=== PATIENT | female | born 1995 | race Two or more races ===

== ENCOUNTER 2019-10-06 05:55 | Inpatient (IN) ==
[2019-10-06] MEDS ORDERED: DINOPROSTONE VAG GEL 10 MG SYRINGE VAG ONE ×2 (07:13→13:24)
[2019-10-06] MEDS ORDERED: ONDANSETRON 4 MG/2 ML VIAL IV PRN (07:14)
[2019-10-06 07:37] LABS: Basophils % 0.3 % (0.0-0.8); Eosinophils % 0.4 % (0.00-10.9); Hematocrit 29.5 VOL% (35.7-47.0); Hemoglobin 9.2 GM/DL (12.0-16.0); Immature Granulocytes % 0.6 %; Immature Granulocytes Absolute 0.04 #; Lymphocytes # 1.9 10*3/uL (1.4-4.0); Lymphocytes % 26.3 % (21.3-54.2); Mean Corpuscular HGB Conc 31.2 GM/DL (32-36); Mean Corpuscular Volume 75.1 FL (87-102); Monocytes % 6.1 % (1.7-12.7); Neutrophils % 66.3 % (38.7-73.9); Platelet Count 146 T/CUMM (130-400); Red Blood Count 3.93 MC/CUMM (3.8-5.5); Red Cell Distribution Width 17.1 % (9.3-17.3); White Blood Count 7.2 T/CUMM (4-12)
[2019-10-06 07:54] LABS: Anisocytosis 1+; Hypochromasia 1+; Microcytosis 1+; Ovalocytes Slight; Polychromasia Slight
[2019-10-06 07:55] LABS: Platelet Estimate Adequate
[2019-10-06] MEDS ORDERED: MEPERIDINE 50 MG/1 ML VIAL IV PRN (12:07)
[2019-10-06] MEDS: LACTATED RINGERS 1,000 ML IV SCH (14:09)
[2019-10-07] MEDS ORDERED: AMPICILLIN INJ 2,000 MG in SODIUM CHLORIDE 0.9% 100 ML IV ONE (02:00)
[2019-10-07] MEDS ORDERED: OXYTOCIN/LR 20 UNIT/1,000 ML BAG IV SCH (02:00)
[2019-10-07] MEDS: AMPICILLIN INJ 1,000 MG in SODIUM CHLORIDE 0.9% 100 ML IV SCH ×2 (06:05→10:53)
[2019-10-07] MEDS ORDERED: CITRIC ACID/SODIUM CITRATE 30 ML UDCUP PO ONE (08:38)
[2019-10-07] MEDS ORDERED: FAMOTIDINE 20 MG/2 ML VIAL IV ONE (08:38)
[2019-10-07] MEDS ORDERED: ceFAZolin 2,000 MG in PREMIX 1 EACH IV ONE (08:38)
[2019-10-07] MEDS ORDERED: OXYTOCIN/LR 30 UNIT/1,000 ML BAG IV ONE (08:54)
[2019-10-07] MEDS ORDERED: OXYTOCIN 10 UNIT/ML VIAL IM ONE (08:54)
[2019-10-07] MEDS: LACTATED RINGERS 1,000 ML IV SCH ×2 (09:38→17:09)
[2019-10-07] MEDS ORDERED: fentaNYL 100 MCG/2 ML VIAL ONE (10:17)
[2019-10-07] MEDS ORDERED: BUPIVACAINE SPINAL 0.75% 2 ML AMP SPINAL ONE (10:17)
[2019-10-07] MEDS ORDERED: MORPHINE 10 MG/10 ML VIAL ONE (10:17)
[2019-10-07] MEDS ORDERED: KETOROLAC 60 MG/2 ML VIAL IM ONE (10:18)
[2019-10-07 11:38] LABS: Cord Arterial Blood HCO3 21.2 MMOL/L; Cord Venous Blood HCO3 22.9 MMOL/L; Cord Venous Blood PCO2 47.2 MMHG; Cord Venous Blood PO2 20.2 MMHG
[2019-10-07 11:57] LABS: Apearance,Urine CLEAR (Clear); Bacteria,Urine Occasional /HPF (Few); Bilirubin,Urine Negative (Negative); Blood, Urine Negative (Negative); Glucose,Urine (UA) Negative (Negative); Ketones,Urine Negative (Negative); Mucus,Urine Occasional /LPF (Occasional); Nitrite,Urine Negative (Negative); Protein,Urine Negative; Squamous Epithelial Cell,Urine Occasional /HPF (0-10); Urine Color Colorless (Yellow); Urine Specific Gravity 1.004 (1.001-1.035); Urine Urobilinogen < 2.0 EU/DL (0.2-1.0); WBC,Urine <1 /HPF (0-6)
[2019-10-07] MEDS ORDERED: hydrOXYzine HCL 25 MG/1 ML VIAL IM PRN (12:02)
[2019-10-07] MEDS ORDERED: diphenhydrAMINE 50 MG/1 ML VIAL IV PRN (12:02)
[2019-10-07] MEDS ORDERED: HYDROmorphone 2 MG/1 ML VIAL IV PRN (12:02)
[2019-10-07] MEDS ORDERED: PHENYLEPHRINE 1 MG/10 ML SYRINGE IV ONE (12:04)
[2019-10-07] MEDS ORDERED: EPINEPHrine 1 MG/ML VIAL ONE (12:05)
[2019-10-07] MEDS ORDERED: BUPIVACAINE 0.5% 50 ML VIAL ONE (12:05)
[2019-10-07] MEDS ORDERED: DEXAMETHASONE 4 MG/1 ML VIAL ONE (12:05)
[2019-10-07] MEDS ORDERED: METHYLERGONOVINE 0.2 MG/1 ML AMP IM ONE (14:34)
[2019-10-07] MEDS ORDERED: OXYTOCIN/LR 20 UNIT/1,000 ML BAG IV ONE (15:00)
[2019-10-07] MEDS ORDERED: HYDROCORTISONE 2.5% RECTAL CREAM 30 GM TUBE TOP PRN (16:54)
[2019-10-07] MEDS ORDERED: IBUPROFEN 800 MG TABLET PO PRN (16:54)
[2019-10-07] MEDS ORDERED: DIPH/TET/ACEL PERT BOOSTER VACCINE 0.5 ML VIAL IM ONE (16:54)
[2019-10-07] MEDS ORDERED: MEASLES/MUMPS/RUBELLA VACCINE 0.5 ML VIAL SUBCUT ONE (16:54)
[2019-10-07] MEDS ORDERED: oxyCODONE/ACETAMINOPHEN 5-325 MG TABLET PO PRN (16:54)
[2019-10-07] MEDS ORDERED: WITCH HAZEL PADS 100/JAR TOP PRN (16:54)
[2019-10-07] MEDS ORDERED: ACETAMINOPHEN 325 MG TABLET PO PRN (16:54)
[2019-10-07] MEDS ORDERED: BISACODYL 10 MG SUPP RECTAL PRN (16:54)
[2019-10-07] MEDS ORDERED: LANOLIN 50% CREAM 0.3 OZ TUBE TOP PRN (16:54)
[2019-10-07] MEDS ORDERED: RHO(D) IMMUNE GLOBULIN 300 MCG SYRINGE IM ONE (16:54)
[2019-10-07] MEDS ORDERED: BENZOCAINE 20%/MENTHOL 0.5% SPRAY 56 GM CAN TOP PRN (16:54)
[2019-10-07] MEDS: KETOROLAC 30 MG/1 ML VIAL IV SCH (18:08)
[2019-10-07] MEDS ORDERED: SODIUM CHLORIDE 0.9% 50 ML IV ONE (18:18)
[2019-10-07] MEDS: ceFAZolin 1,000 MG in SYRINGE 1 EACH IV SCH (18:26)
[2019-10-07 19:14] LABS: Basophils % 0.1 % (0.0-0.8); Hemoglobin 8.7 GM/DL (12.0-16.0); Immature Granulocytes % 0.7 %; Immature Granulocytes Absolute 0.09 #; Lymphocytes # 1.1 10*3/uL (1.4-4.0); Lymphocytes % 8.3 % (21.3-54.2); Mean Corpuscular HGB Conc 31.1 GM/DL (32-36); Mean Corpuscular Volume 76.5 FL (87-102); Monocytes % 4.5 % (1.7-12.7); Neutrophils % 86.4 % (38.7-73.9); Platelet Count 166 T/CUMM (130-400); Red Blood Count 3.66 MC/CUMM (3.8-5.5); Red Cell Distribution Width 17.3 % (9.3-17.3); White Blood Count 13.2 T/CUMM (4-12)
[2019-10-07 21:18] LABS: Platelet Estimate Adequate
[2019-10-08] MEDS: FERROUS SULFATE 325 MG TABLET PO SCH ×3 (00:36→21:59)
[2019-10-08] MEDS: KETOROLAC 30 MG/1 ML VIAL IV SCH ×2 (00:37→06:36)
[2019-10-08] MEDS: ceFAZolin 1,000 MG in SYRINGE 1 EACH IV SCH (02:23)
[2019-10-08 05:59] LABS: Basophils % 0.2 % (0.0-0.8); Eosinophils % 0.1 % (0.00-10.9); Hematocrit 24.7 VOL% (35.7-47.0); Hemoglobin 7.7 GM/DL (12.0-16.0); Immature Granulocytes % 0.6 %; Immature Granulocytes Absolute 0.07 #; Lymphocytes # 2.4 10*3/uL (1.4-4.0); Lymphocytes % 19.7 % (21.3-54.2); Mean Corpuscular HGB Conc 31.2 GM/DL (32-36); Mean Corpuscular Volume 74.8 FL (87-102); Monocytes % 7.1 % (1.7-12.7); Neutrophils % 72.3 % (38.7-73.9); Platelet Count 147 T/CUMM (130-400); Red Cell Distribution Width 17.2 % (9.3-17.3); White Blood Count 12.1 T/CUMM (4-12)
[2019-10-08 06:25] LABS: Hypochromasia 1+
[2019-10-08 06:26] LABS: Anisocytosis 1+; Microcytosis 1+; Ovalocytes Few; Platelet Estimate Adequate; Target Cells Slight
[2019-10-08] MEDS ORDERED: HydrOXYzine PAMOATE 25 MG CAPSULE PO PRN (06:40)
[2019-10-08] MEDS: DOCUSATE SODIUM 100 MG CAPSULE PO SCH ×2 (10:26→21:59)
[2019-10-08] MEDS: MAGNESIUM HYDROXIDE SUSP 30 ML UDCUP PO PRN (16:46)
[2019-10-08] MEDS: METOCLOPRAMIDE 10 MG TABLET PO SCH (16:46)
[2019-10-08] MEDS: oxyCODONE/ACETAMINOPHEN 5-325 MG TABLET PO PRN (18:28)
[2019-10-09] MEDS: METOCLOPRAMIDE 10 MG TABLET PO SCH ×3 (00:38→16:38)
[2019-10-09 07:16] VITALS: BP 109/69
[2019-10-09] MEDS: DOCUSATE SODIUM 100 MG CAPSULE PO SCH ×2 (07:52→14:16)
[2019-10-09] MEDS: FERROUS SULFATE 325 MG TABLET PO SCH ×2 (07:52→14:16)
[2019-10-09] MEDS: MAGNESIUM HYDROXIDE SUSP 30 ML UDCUP PO PRN (07:52)
[2019-10-09] MEDS ORDERED: MAGNESIUM CITRATE 300 ML BOTTLE PO ONE (10:26)
[2019-10-09] MEDS: oxyCODONE/ACETAMINOPHEN 5-325 MG TABLET PO PRN (14:36)
== END 2019-10-09 16:30 | disposition home or self-care (01) | DRG 540 ==
LOC: N.LDOUT 05:55 → N.LD 06:14 → N.OB 10-07 16:40
PROVIDERS: ADMIT Obstetrics & Gynecology; ATTEND Obstetrics & Gynecology
PROC: LDCSECT (ICD-10-PCS; 2019-10-07 10:30)

== ENCOUNTER 2022-05-05 06:27 | Inpatient (IN) ==
[2022-05-05] MEDS ORDERED: ONDANSETRON 4 MG/2 ML VIAL IV PRN (06:38)
[2022-05-05] MEDS ORDERED: CITRIC ACID/SODIUM CITRATE 30 ML UDCUP PO ONE ×2 (06:38→06:46)
[2022-05-05] MEDS ORDERED: LACTATED RINGERS 250 ML IV ONE (06:38)
[2022-05-05] MEDS ORDERED: LACTATED RINGERS 500 ML IV PRN (06:38)
[2022-05-05] MEDS ORDERED: OXYTOCIN/LR 20 UNIT/1,000 ML BAG IV ONE ×3 (06:38→11:26)
[2022-05-05] MEDS ORDERED: miSOPROStoL 200 MCG TABLET RECTAL PRN ×2 (06:38→06:46)
[2022-05-05] MEDS ORDERED: diphenhydrAMINE 50 MG/1 ML VIAL IV PRN ×2 (06:38)
[2022-05-05] MEDS ORDERED: FAMOTIDINE 20 MG/2 ML VIAL IV ONE (06:38)
[2022-05-05] MEDS ORDERED: METHYLERGONOVINE 0.2 MG/1 ML AMP IM PRN ×2 (06:38→06:46)
[2022-05-05] MEDS ORDERED: ePHEDrine 50 MG/ML VIAL IV PRN (06:38)
[2022-05-05] MEDS ORDERED: ONDANSETRON 4 MG/2 ML VIAL IV ONE (06:38)
[2022-05-05] MEDS ORDERED: hydrOXYzine HCL 25 MG/1 ML VIAL IM PRN (06:38)
[2022-05-05] MEDS ORDERED: LACTATED RINGERS 1,000 ML IV ONE ×2 (06:38→09:42)
[2022-05-05] MEDS ORDERED: CARBOPROST TROMETHAMINE 250 MCG/ML AMP IM PRN ×2 (06:38→06:46)
[2022-05-05] MEDS ORDERED: TRANEXAMIC ACID 1,000 MG in SODIUM CHLORIDE 0.9% 100 ML IV PRN ×2 (06:38→06:46)
[2022-05-05] MEDS ORDERED: PROMETHAZINE 25 MG/1 ML VIAL IM ONE (06:38)
[2022-05-05] MEDS ORDERED: LACTATED RINGERS 500 ML IV ONE (06:38)
[2022-05-05] MEDS ORDERED: LACTATED RINGERS 250 ML IV PRN (06:38)
[2022-05-05] MEDS ORDERED: OXYTOCIN/LR 30 UNIT/1,000 ML BAG IV ONE (06:45)
[2022-05-05] MEDS ORDERED: LACTATED RINGERS 1,000 ML IV SCH ×5 (07:00→11:30)
[2022-05-05 07:25] LABS: Basophils % 0.1 % (0.0-0.8); Eosinophils % 0.4 % (0.00-10.9); Hematocrit 28.7 VOL% (35.7-47.0); Hemoglobin 9.2 GM/DL (12.0-16.0); Immature Granulocytes % 0.4 %; Immature Granulocytes Absolute 0.03 #; Lymphocytes # 1.9 10*3/uL (1.4-4.0); Lymphocytes % 28.5 % (21.3-54.2); Mean Corpuscular HGB Conc 32.1 GM/DL (32-36); Mean Corpuscular Volume 75.5 FL (87-102); Monocytes # 0.5 10*3/uL (0.11-0.8); Neutrophils % 62.6 % (38.7-73.9); Red Cell Distribution Width 16.8 % (9.3-17.3); White Blood Count 6.8 T/CUMM (4-12)
[2022-05-05 07:29] LABS: Platelet Count 120 T/CUMM (130-400)
[2022-05-05] MEDS ORDERED: OXYTOCIN 10 UNIT/ML VIAL IM ONE (07:33)
[2022-05-05 07:54] LABS: Hypochromia Slight; Microcytosis Slight
[2022-05-05] MEDS ORDERED: TRANEXAMIC ACID 1,000 MG/10 ML VIAL ONE (08:16)
[2022-05-05] MEDS ORDERED: CARBOPROST TROMETHAMINE 250 MCG/ML AMP IM ONE (08:16)
[2022-05-05] MEDS ORDERED: miSOPROStoL 200 MCG TABLET ONE (08:16)
[2022-05-05] MEDS ORDERED: METHYLERGONOVINE 0.2 MG/1 ML AMP ONE (08:16)
[2022-05-05] MEDS ORDERED: SODIUM CHLORIDE 0.9% 0 ML IV ONE (08:16)
[2022-05-05] MEDS ORDERED: ceFAZolin 3,000 MG in SYRINGE 1 EACH IV ONE (08:30)
[2022-05-05] MEDS ORDERED: SODIUM CHLORIDE 0.9% 1,000 ML IV PRN (08:49)
[2022-05-05] MEDS ORDERED: ONDANSETRON 4 MG/2 ML VIAL ONE (09:05)
[2022-05-05] MEDS ORDERED: BUPIVACAINE SPINAL 0.75% 2 ML AMP SPINAL ONE (09:05)
[2022-05-05] MEDS ORDERED: buprenorphine HCL 0.3 MG/ML VIAL ONE (09:05)
[2022-05-05] MEDS ORDERED: PHENYLEPHRINE 1 MG/10 ML SYRINGE IV ONE (09:35)
[2022-05-05] MEDS ORDERED: KETOROLAC 30 MG/1 ML VIAL ONE (09:35)
[2022-05-05] MEDS ORDERED: ACETAMINOPHEN INJ 1,000 MG/100 ML VIAL IV ONE (09:35)
[2022-05-05] MEDS ORDERED: ePHEDrine 50 MG/ML VIAL ONE (09:40)
[2022-05-05] MEDS ORDERED: DEXAMETHASONE 4 MG/1 ML VIAL ONE (09:42)
[2022-05-05 10:05] LABS: Cord Venous Blood HCO3 20.6 MMOL/L; Cord Venous Blood PCO2 41.2 MMHG; Cord Venous Blood PO2 36.1
[2022-05-05 10:06] LABS: Bacteria,Urine Occasional /HPF (Few); RBC,Urine 1 /HPF (0-4)
[2022-05-05 10:07] LABS: Bilirubin,Urine Negative (Negative); Blood, Urine Negative (Negative); Glucose,Urine (UA) Negative (Negative); Ketones,Urine Negative (Negative); Nitrite,Urine Negative (Negative); Protein,Urine Negative (Negative); Urine Appearance Clear (Clear); Urine Color Yellow (Yellow); Urine Urobilinogen 0.2 eU/dL (<2.0)
[2022-05-05] MEDS ORDERED: ACETAMINOPHEN 325 MG TABLET PO PRN (11:26)
[2022-05-05] MEDS ORDERED: RHO(D) IMMUNE GLOBULIN 300 MCG SYRINGE IM ONE (11:26)
[2022-05-05] MEDS ORDERED: MAGNESIUM HYDROXIDE SUSP 30 ML UDCUP PO PRN (11:26)
[2022-05-05] MEDS ORDERED: KETOROLAC 30 MG/1 ML VIAL IV SCH (16:00)
[2022-05-05] MEDS ORDERED: ACETAMINOPHEN 500 MG TABLET PO SCH (16:00)
[2022-05-05 16:46] LABS: Basophils % 0.2 % (0.0-0.8); Eosinophils % 0.3 % (0.00-10.9); Hematocrit 25.9 VOL% (35.7-47.0); Hemoglobin 8.2 GM/DL (12.0-16.0); Immature Granulocytes % 0.4 %; Immature Granulocytes Absolute 0.04 #; Lymphocytes # 2.3 10*3/uL (1.4-4.0); Lymphocytes % 22.2 % (21.3-54.2); Mean Corpuscular HGB Conc 31.7 GM/DL (32-36); Mean Corpuscular Volume 75.7 FL (87-102); Monocytes # 0.7 10*3/uL (0.11-0.8); Monocytes % 7.2 % (1.7-12.7); Neutrophils % 69.7 % (38.7-73.9); Platelet Count 105 T/CUMM (130-400); Red Blood Count 3.42 MC/CUMM (3.8-5.5); Red Cell Distribution Width 16.8 % (9.3-17.3); White Blood Count 10.2 T/CUMM (4-12)
[2022-05-05 17:39] LABS: Hypochromia Slight; Lymphocytes 29 % (20-55); Microcytosis Slight; Reactive Lymphocytes 1+; Total Cells Counted 100
[2022-05-05 17:41] LABS: Ovalocytes Slight; Schistocytes Slight; Tear Drop Cells Slight
[2022-05-05 17:42] LABS: Platelet Estimate Decreased
[2022-05-05] MEDS ORDERED: HYDROmorphone 1 MG/1 ML SYRINGE IV PRN (17:54)
[2022-05-05] MEDS: ONDANSETRON 4 MG/2 ML VIAL IV PRN (18:07)
[2022-05-05] MEDS: IBUPROFEN 800 MG TABLET PO PRN (20:31)
[2022-05-05] MEDS: KETOROLAC 30 MG/1 ML VIAL IV SCH (22:06)
[2022-05-05] MEDS: ACETAMINOPHEN 500 MG TABLET PO SCH (22:09)
[2022-05-05] MEDS: DOCUSATE SODIUM 100 MG CAPSULE PO SCH (23:35)
[2022-05-06] MEDS: KETOROLAC 30 MG/1 ML VIAL IV SCH (04:30)
[2022-05-06] MEDS: ACETAMINOPHEN 500 MG TABLET PO SCH (04:30)
[2022-05-06] MEDS: ONDANSETRON 4 MG/2 ML VIAL IV PRN ×2 (04:37→15:25)
[2022-05-06 05:11] LABS: Basophils % 0.3 % (0.0-0.8); Eosinophils % 0.5 % (0.00-10.9); Hematocrit 21.9 VOL% (35.7-47.0); Immature Granulocytes % 0.7 %; Immature Granulocytes Absolute 0.05 #; Lymphocytes # 1.8 10*3/uL (1.4-4.0); Lymphocytes % 23.9 % (21.3-54.2); Mean Corpuscular Volume 75.8 FL (87-102); Monocytes # 0.6 10*3/uL (0.11-0.8); Monocytes % 8.3 % (1.7-12.7); Neutrophils % 66.3 % (38.7-73.9); Platelet Count 109 T/CUMM (130-400); Red Blood Count 2.89 MC/CUMM (3.8-5.5); Red Cell Distribution Width 16.6 % (9.3-17.3); White Blood Count 7.5 T/CUMM (4-12)
[2022-05-06 05:31] LABS: Hypochromia 1+; Microcytosis 1+; Ovalocytes Slight
[2022-05-06 05:32] LABS: Platelet Estimate Decreased
[2022-05-06] MEDS: METOCLOPRAMIDE 10 MG TABLET PO SCH ×3 (09:17→21:00)
[2022-05-06] MEDS: DOCUSATE SODIUM 100 MG CAPSULE PO SCH ×2 (09:17→21:00)
[2022-05-06] MEDS: MULTIVITAMIN (PRENATAL) TABLET PO SCH (09:17)
[2022-05-06] MEDS: IBUPROFEN 800 MG TABLET PO PRN (09:19)
[2022-05-06] MEDS ORDERED: SODIUM CHLORIDE 0.9% 1,000 ML IV PRN ×2 (10:10→10:12)
[2022-05-06] MEDS ORDERED: MEPERIDINE 50 MG/1 ML VIAL IV ONE (15:07)
[2022-05-06] MEDS ORDERED: MEPERIDINE 50 MG/1 ML VIAL IV PRN (15:07)
[2022-05-06 18:57] LABS: Basophils % 0.1 % (0.0-0.8); Eosinophils % 0.2 % (0.00-10.9); Hematocrit 27.9 VOL% (35.7-47.0); Immature Granulocytes % 0.7 %; Immature Granulocytes Absolute 0.07 #; Lymphocytes # 1.4 10*3/uL (1.4-4.0); Lymphocytes % 14.7 % (21.3-54.2); Mean Corpuscular HGB Conc 32.3 GM/DL (32-36); Mean Corpuscular Volume 79.5 FL (87-102); Monocytes # 0.7 10*3/uL (0.11-0.8); Monocytes % 6.8 % (1.7-12.7); Neutrophils % 77.5 % (38.7-73.9); Platelet Count 138 T/CUMM (130-400); Red Blood Count 3.51 MC/CUMM (3.8-5.5); Red Cell Distribution Width 19.1 % (9.3-17.3); White Blood Count 9.6 T/CUMM (4-12)
[2022-05-06 21:01] LABS: Platelet Estimate Decreased
[2022-05-07] MEDS: METOCLOPRAMIDE 10 MG TABLET PO SCH ×3 (04:02→20:27)
[2022-05-07] MEDS: IBUPROFEN 800 MG TABLET PO PRN ×2 (04:02→18:01)
[2022-05-07] MEDS: MULTIVITAMIN (PRENATAL) TABLET PO SCH (09:54)
[2022-05-07] MEDS: DOCUSATE SODIUM 100 MG CAPSULE PO SCH ×2 (09:54→20:27)
[2022-05-08] MEDS: METOCLOPRAMIDE 10 MG TABLET PO SCH ×3 (06:28→22:01)
[2022-05-08] MEDS: IBUPROFEN 800 MG TABLET PO PRN ×2 (08:25→18:52)
[2022-05-08] MEDS: DOCUSATE SODIUM 100 MG CAPSULE PO SCH ×3 (08:26→22:20)
[2022-05-08] MEDS: MULTIVITAMIN (PRENATAL) TABLET PO SCH (08:26)
[2022-05-08] MEDS: POLYETHYLENE GLYCOL POWDER 17 GM PACK PO SCH (09:37)
[2022-05-08] MEDS ORDERED: BISACODYL 10 MG SUPP RECTAL PRN (19:54)
[2022-05-08] MEDS ORDERED: oxyCODONE/ACETAMINOPHEN 5-325 MG TABLET PO PRN (21:12)
[2022-05-08] MEDS: SIMETHICONE CHEW 80 MG TABLET PO PRN (22:01)
[2022-05-08] MEDS: FERROUS SULFATE 325 MG TABLET PO SCH (22:01)
[2022-05-09] MEDS: IBUPROFEN 800 MG TABLET PO PRN ×3 (00:19→23:25)
[2022-05-09] MEDS: oxyCODONE/ACETAMINOPHEN 5-325 MG TABLET PO PRN ×2 (00:19→23:25)
[2022-05-09] MEDS: DOCUSATE SODIUM 100 MG CAPSULE PO SCH ×2 (09:13→21:11)
[2022-05-09] MEDS: SIMETHICONE CHEW 80 MG TABLET PO PRN (09:13)
[2022-05-09] MEDS: FERROUS SULFATE 325 MG TABLET PO SCH ×2 (09:13→21:12)
[2022-05-09] MEDS: MULTIVITAMIN (PRENATAL) TABLET PO SCH (09:13)
[2022-05-09] MEDS: POLYETHYLENE GLYCOL POWDER 17 GM PACK PO SCH (10:27)
[2022-05-10] MEDS: MULTIVITAMIN (PRENATAL) TABLET PO SCH (09:50)
[2022-05-10] MEDS: FERROUS SULFATE 325 MG TABLET PO SCH (09:50)
[2022-05-10] MEDS: DOCUSATE SODIUM 100 MG CAPSULE PO SCH (09:50)
[2022-05-10] MEDS: POLYETHYLENE GLYCOL POWDER 17 GM PACK PO SCH (09:50)
[2022-05-10] MEDS ORDERED: NEOMYCIN/POLYMYXIN/BACITRACIN OINT 0.9 GM PACK TOP SCH (10:00)
[2022-05-10] MEDS: IBUPROFEN 800 MG TABLET PO PRN (11:09)
[2022-05-10] MEDS: oxyCODONE/ACETAMINOPHEN 5-325 MG TABLET PO PRN (11:11)
[2022-05-10 13:03] VITALS: BP 133/71
== END 2022-05-10 13:15 | disposition home or self-care (01) | DRG 540 ==
LOC: N.LD 06:27 → N.OB 20:24 → N.LD 05-07 16:00 → N.OB 05-09 07:23
PROVIDERS: ADMIT Obstetrics & Gynecology; ATTEND Obstetrics & Gynecology
PROC: LDCSECT (ICD-10-PCS; 2022-05-05 09:00)

== ENCOUNTER 2022-05-31 16:45 | Inpatient (IN) ==
[2022-05-31] MEDS ORDERED: SODIUM CHLORIDE 0.9% 1,000 ML IV STA (17:24)
[2022-05-31 17:59] LABS: Basophils % 0.2 % (0.0-0.8); Eosinophils # 0.1 10*3/uL (0.0-0.87); Eosinophils % 0.9 % (0.00-10.9); Hematocrit 34.2 VOL% (35.7-47.0); Hemoglobin 10.5 GM/DL (12.0-16.0); Immature Granulocytes % 0.3 %; Immature Granulocytes Absolute 0.03 #; Lymphocytes # 1.7 10*3/uL (1.4-4.0); Lymphocytes % 19.9 % (21.3-54.2); Mean Corpuscular HGB Conc 30.7 GM/DL (32-36); Mean Platelet Volume 13.8 FL (9.6-12.0); Monocytes # 0.6 10*3/uL (0.11-0.8); Monocytes % 6.3 % (1.7-12.7); Neutrophils % 72.4 % (38.7-73.9); Platelet Count 271 T/CUMM (130-400); Red Blood Count 4.22 MC/CUMM (3.8-5.5); White Blood Count 8.8 T/CUMM (4-12)
[2022-05-31 18:14] LABS: Bilirubin,Total 0.5 MG/DL (0.20-1.00); Calcium 8.7 MG/DL (8.5-10.1); Osmolality,Calculated 278.3 MOS/KG (273-304); Potassium 3.6 MMOL/L (3.5-5.1); Total Protein 7.3 G/DL (6.4-8.2)
[2022-05-31] MEDS ORDERED: PIPERACILLIN/TAZOBACTAM 3,375 MG in SODIUM CHLORIDE 0.9% 100 ML IV STA (19:43)
[2022-05-31] MEDS ORDERED: CLINDAMYCIN INJ 900 MG/50 ML PREMIX IV STA (19:52)
[2022-06-01] MEDS ORDERED: MAGNESIUM HYDROXIDE SUSP 30 ML UDCUP PO PRN (00:08)
[2022-06-01] MEDS ORDERED: BISACODYL 10 MG SUPP RECTAL PRN (00:08)
[2022-06-01] MEDS ORDERED: ACETAMINOPHEN 325 MG TABLET PO PRN (00:08)
[2022-06-01] MEDS ORDERED: IBUPROFEN 800 MG TABLET PO PRN (00:08)
[2022-06-01] MEDS ORDERED: ONDANSETRON 4 MG/2 ML VIAL IV PRN (00:08)
[2022-06-01] MEDS ORDERED: MORPHINE 2 MG/1 ML SYRINGE IV PRN (00:08)
[2022-06-01] MEDS: FERROUS SULFATE 325 MG TABLET PO SCH ×3 (00:30→20:29)
[2022-06-01] MEDS: DOCUSATE SODIUM 100 MG CAPSULE PO SCH ×3 (00:30→20:29)
[2022-06-01] MEDS: SODIUM CHLORIDE 0.9% 1,000 ML IV SCH ×3 (00:31→18:01)
[2022-06-01] MEDS: CLINDAMYCIN INJ 900 MG/50 ML PREMIX IV SCH ×3 (04:51→20:31)
[2022-06-01 05:48] LABS: Basophils % 0.1 % (0.0-0.8); Eosinophils # 0.1 10*3/uL (0.0-0.87); Eosinophils % 0.7 % (0.00-10.9); Hemoglobin 9.9 GM/DL (12.0-16.0); Immature Granulocytes % 0.4 %; Immature Granulocytes Absolute 0.03 #; Lymphocytes # 2.1 10*3/uL (1.4-4.0); Lymphocytes % 28.4 % (21.3-54.2); Mean Corpuscular Volume 81.5 FL (87-102); Monocytes # 0.5 10*3/uL (0.11-0.8); Monocytes % 7.1 % (1.7-12.7); Neutrophils % 63.3 % (38.7-73.9); Platelet Count 227 T/CUMM (130-400); Red Blood Count 4.05 MC/CUMM (3.8-5.5); Red Cell Distribution Width 16.9 % (9.3-17.3); White Blood Count 7.4 T/CUMM (4-12)
[2022-06-01 06:09] LABS: Albumin 2.7 G/DL (3.4-5.0); Bilirubin,Total 0.6 MG/DL (0.20-1.00); Calcium 8.3 MG/DL (8.5-10.1); Potassium 3.4 MMOL/L (3.5-5.1); Total Protein 6.5 G/DL (6.4-8.2)
[2022-06-01] MEDS: oxyCODONE/ACETAMINOPHEN 5-325 MG TABLET PO PRN ×2 (11:20→20:30)
[2022-06-01] MEDS ORDERED: SODIUM CHLORIDE 0.45% 1,000 ML IV SCH (15:30)
[2022-06-02] MEDS: CLINDAMYCIN INJ 900 MG/50 ML PREMIX IV SCH ×3 (05:33→21:21)
[2022-06-02] MEDS: oxyCODONE/ACETAMINOPHEN 5-325 MG TABLET PO PRN ×2 (05:34→19:45)
[2022-06-02] MEDS: SODIUM CHLORIDE 0.9% 1,000 ML IV SCH (05:35)
[2022-06-02] MEDS: DOCUSATE SODIUM 100 MG CAPSULE PO SCH ×3 (10:10→22:09)
[2022-06-02] MEDS: FERROUS SULFATE 325 MG TABLET PO SCH ×3 (10:10→22:10)
[2022-06-03] MEDS: CLINDAMYCIN INJ 900 MG/50 ML PREMIX IV SCH ×4 (04:30→21:41)
[2022-06-03] MEDS: IBUPROFEN 800 MG TABLET PO PRN ×2 (05:15→22:02)
[2022-06-03] MEDS: oxyCODONE/ACETAMINOPHEN 5-325 MG TABLET PO PRN ×2 (05:15→20:26)
[2022-06-03] MEDS: DOCUSATE SODIUM 100 MG CAPSULE PO SCH ×2 (08:30→20:27)
[2022-06-03] MEDS: FERROUS SULFATE 325 MG TABLET PO SCH ×2 (08:30→20:27)
[2022-06-03] MEDS: POTASSIUM CHLORIDE 20 MEQ TABLET PO SCH (08:30)
[2022-06-04] MEDS: CLINDAMYCIN INJ 900 MG/50 ML PREMIX IV SCH ×3 (05:15→20:52)
[2022-06-04] MEDS: oxyCODONE/ACETAMINOPHEN 5-325 MG TABLET PO PRN ×2 (05:15→20:23)
[2022-06-04] MEDS: DOCUSATE SODIUM 100 MG CAPSULE PO SCH ×2 (08:19→20:22)
[2022-06-04] MEDS: POTASSIUM CHLORIDE 20 MEQ TABLET PO SCH (08:19)
[2022-06-04] MEDS: FERROUS SULFATE 325 MG TABLET PO SCH ×2 (08:20→20:52)
[2022-06-04] MEDS: IBUPROFEN 800 MG TABLET PO PRN (21:35)
[2022-06-05] MEDS: CLINDAMYCIN INJ 900 MG/50 ML PREMIX IV SCH ×2 (04:55→13:02)
[2022-06-05] MEDS: DOCUSATE SODIUM 100 MG CAPSULE PO SCH (08:17)
[2022-06-05] MEDS: POTASSIUM CHLORIDE 20 MEQ TABLET PO SCH (08:18)
[2022-06-05] MEDS: FERROUS SULFATE 325 MG TABLET PO SCH (08:18)
[2022-06-05] MEDS: oxyCODONE/ACETAMINOPHEN 5-325 MG TABLET PO PRN (08:39)
[2022-06-05] MEDS: IBUPROFEN 800 MG TABLET PO PRN (08:40)
[2022-06-05 11:57] VITALS: BP 133/74
== END 2022-06-05 15:40 | disposition home or self-care (01) | DRG 561 ==
LOC: N.ED 16:45 → N.EDINP 16:45 → N.2W 23:59 → N.OB 06-02 13:56
PROVIDERS: ADMIT Obstetrics & Gynecology; ATTEND Obstetrics & Gynecology